=== PATIENT | male | born 1960 | race Caucasian/White ===

== ENCOUNTER 2022-10-14 10:50 | Outpatient (CLI) | payer OTHER, SELFPAY ==
--- NOTE | 2022-10-14 11:15 | XR_ITS ---
WS: [id number] Chest 2 views, 10/14/2022 Clinical Data: REGULATED PROGRAM MONITORING Comparison: None. Findings: No nodules, masses or effusions are seen. The heart is normal. The pulmonary vascularity is not increased. No pneumonia or pneumothorax is seen. The diaphragms are flattened. XR/XR chest 2V* [id number] Impression: Hyperinflation.
== END 2022-10-14 10:51 | disposition home or self-care (01) ==
LOC: RAD 10:59
PROVIDERS: PCP Electrodiagnostic Medicine; Visit Provider Preventive Medicine Occupational Medicine
DX: Z51.81 Encounter for therapeutic drug level monitoring (principal)
CPT/HCPCS: 71046

== ENCOUNTER 2023-03-25 12:47 | Outpatient (CLI) | payer OTHER, SELFPAY ==
--- NOTE | 2023-03-25 13:00 | CTR_ITS ---
PROCEDURE INFORMATION: Exam: CT Chest Without Contrast; Diagnostic Exam date and time: 03/25/2023 1:31 PM Age: 62 years old Clinical indication: Condition or disease; Lung condition and disease; Pneumonia TECHNIQUE: Imaging protocol: Diagnostic computed tomography of the chest without contrast. Radiation optimization: All CT scans at this facility use at least one of these dose optimization techniques: automated exposure control; mA and/or kV adjustment per patient size (includes targeted exams where dose is matched to clinical indication); or iterative reconstruction. REPORTING DATA: Count of CT and Cardiac NM exams in prior 12 months: This patient has received 0 known CTs and 0 known cardiac nuclear medicine studies in the 12 months prior to the current study. COMPARISON: CR XR chest 2V* [id number] 01/18/2023 11:07 AM RADIATION DOSE METRICS: Total DLP (mGy-cm): 574.1 FINDINGS: Lungs: There is severe centrilobular emphysema involving the apical regions on both sides and also some emphysematous changes in the perihilar regions as well. No acute infiltrate is identified. There is a 4 mm sized noncalcified pulmonary nodule right lower lobe, best seen series 7 image 51. For patients at low risk (minimal or absent history of smoking and of other known risk factors), no routine follow-up is indicated. For patients at high risk (history of smoking or of other known risk factors), consider optional CT Chest at 12 months. (Reference: [facility]) Pleural spaces: Unremarkable. No pneumothorax. No pleural effusion. Heart: Heart is within normal limits of size. There is no evidence of pericardial fluid collections. Coronary arteries: There is mild atherosclerotic calcification of the coronary arteries. Lymph nodes: There is no evidence of lymphadenopathy. Vasculature: There is no thoracic aortic aneurysm. There is some atherosclerotic calcification of the descending thoracic aorta. Bones/joints: Unremarkable. No acute fracture. Soft tissues: Unremarkable. CT/CT chest wo con [id number] IMPRESSION: 1. Pulmonary emphysema. No acute infiltrate. 2. Small noncalcified right lower lobe pulmonary nodule. Follow-up according to Fleischner society guidelines recommended. COMMENTS: In the absence of a history or active diagnosis of lung cancer, it is recommended that this patient with emphysema be evaluated for enrollment in a low dose CT lung cancer screening program. REFERENCES: Carlton Barrett et al. Guidelines for Management of Incidental Pulmonary Nodules Detected on CT Images: From the Fleischner Society 2017. Radiology. 2017;284(1):228-243.
== END 2023-03-25 12:48 | disposition home or self-care (01) ==
PROVIDERS: PCP Electrodiagnostic Medicine; Visit Provider Electrodiagnostic Medicine
DX: J18.9 Pneumonia, unspecified organism (principal); J43.9 Emphysema, unspecified; R91.1 Solitary pulmonary nodule
CPT/HCPCS: 71250